=== PATIENT | male | born 1960 | race Caucasian/White ===

== ENCOUNTER → 2020-09-21 07:24 | Outpatient (CLI) | payer BC, SELFPAY ==
[2020-09-21 20:24] LABS: SARS-CoV-2 RNA PCR Negative
== END ==
PROVIDERS: PCP Family Medicine; Visit Provider Internal Medicine Gastroenterology
DX: Z01.812 Encounter for preprocedural laboratory examination (principal); Z20.822 Contact with and (suspected) exposure to COVID-19
CPT/HCPCS: C9803; U0003; U0005

== ENCOUNTER 2020-09-22 00:18 | Day surgery (SDC) | payer BC, SELFPAY ==
[2020-09-08 14:46] VITALS: BMI 27.0
--- NOTE | 2020-09-21 07:19 | SUR.PREOP ---
0718 Spoke with patient. He missed his Covid test appointment on Monday. Pt is going this morning. We discussed him prepping for his procedure today and us not having his test back till early tomorrow morning. I told him I would check his results at 5 am tomorrow and call him if his test was positive. He voiced understanding that if the test came back positive that we would cancel his procedure and he would have done the prep for nothing. He was ok with this and wants to proceed with the procedure and with getting Covid tested this morning.
[2020-09-22 06:26] VITALS: BP 133/69; PULSE 54; RESP 18; TEMP 36.3; O2SAT 100; BMI 28.9
[2020-09-22] MEDS: LACTATED RINGERS 1,000 ML 150 ML IV CONT (06:35)
--- NOTE | 2020-09-22 06:50 | PM.HPGS ---
History of Present Illness History of Present Illness Consent: Risks, benefits, and alternatives have been discussed and questions answered. Patient agrees to proceed with procedure. Chief complaint: Neoplasm Screeing, Hx of Colon Polyps, Fami hx Col Narrative: Kade Cleary is a 59 year old male For colon cancer screening. There is a family history of colon cancer Review of Systems Review of Systems: All systems reviewed & are unremarkable except as noted in HPI and below PMFSH Past Medical History Medical History Gilbert syndrome Hepatitis C Family History Family History Grandparent Family history of cardiovascular disease Mother Carcinoma of colon Social History Social History Smoking packs per day: 1 Smoking cigarettes per day: 20.0 Years smoked: 30 Smoking pack-years: 30.00 Smoking status: Former smoker Tobacco type: cigarettes Alcohol intake: never Substance use: never Living arrangements: with family Spiritual care concerns: No Meds Home Medications and Allergies Home Medications Medication Instructions Recorded Confirmed Type No Home Medications 09/22/20 09/22/20 History Allergies Allergy/AdvReac Type Severity Reaction Status Date / Time No Known Allergies Allergy Verified 09/22/20 06:20 Vital Signs Vital Signs - 24 hr 09/22/20 06:26 Temperature 36.3 C L Pulse Rate 54 L Respiratory Rate 18 Blood Pressure 133/69 Pulse Oximetry 100 Exam Resp: Auscultation: clear to auscultation bilaterally Cardio: Rate: regular rate Rhythm: regular rhythm GI: GI Palp: Yes Soft to palpation and No Tenderness to palpation present (GI) Assessment and Plan Assessment and plan (1) Colon cancer screening: Code(s): Z12.11 - Encounter for screening for malignant neoplasm of colon Status: Acute Assessment and Plan: Colonoscopy with possible biopsy or polypectomy or cautery or injection of substances.
--- NOTE | 2020-09-22 07:00 | WPDANESEPPF ---
Anes - Initial Pre Proc Eval Procedure: Operation Date: 09/22/20 07:30 Proposed Procedures p Screening Colonoscopy - Lincoln Ang MD Date/Time: 09/22/20 07:00 Surgeon: Lincoln Ang MD Pre Op Diagnosis: Neoplasm Screeing, Hx of Colon Polyps, Fami hx Col Patient Data Age: 59 Gender: M Height: 5 ft 5 in Weight: 78.9 kg Last Vital Signs Temp 97.3 F L 09/22/20 06:26 Pulse 54 L 09/22/20 06:26 Resp 18 09/22/20 06:26 BP 133/69 09/22/20 06:26 Pulse Ox 100 09/22/20 06:26 Allergies Allergy/AdvReac Type Severity Reaction Status Date / Time No Known Allergies Allergy Verified 09/22/20 06:20 Home Medications Medication Instructions Recorded Confirmed Type No Home Medications 09/22/20 09/22/20 History Patient hx anesthesia problems: none Family hx anesthesia problems: none PMFSH Past Medical History Medical History Gilbert syndrome Hepatitis C Family History Family History Grandparent Family history of cardiovascular disease Mother Carcinoma of colon Social History Social History Smoking packs per day: 1 Smoking cigarettes per day: 20.0 Years smoked: 30 Smoking pack-years: 30.00 Smoking status: Former smoker Tobacco type: cigarettes Alcohol intake: never Substance use: never Living arrangements: with family Spiritual care concerns: No Anes - Eval Final PreProcedure Day of Procedure 09/22/20 07:00 Patient weight: normal Heart: regular rate and rhythm Lungs: clear to auscultation Airway: Mallampati scale class II Neurological: alert and oriented Last oral intake: >/= 8 hours ASA classification: III Emergent: no Anesthetic plan: proceed Anesthesia type and monitoring: general GIVS and standard monitoring Informed Consent: The patient's anesthetic plan and its attendant risks and benefits were discussed with the patient/family/POA. Questions were solicited and answers provided to the satisfaction of the patient/family/POA.
[2020-09-22 07:48] VITALS: BP 105/62; PULSE 60; RESP 22; O2SAT 98
[2020-09-22 07:58] VITALS: BP 102/61; PULSE 48; RESP 16; O2SAT 99
[2020-09-22 08:08] VITALS: BP 109/55; PULSE 68; RESP 18; O2SAT 100
== END 2020-09-22 08:24 | disposition home or self-care (01) ==
PROVIDERS: PCP Family Medicine; Visit Provider Internal Medicine Gastroenterology
PROC: 0DJD8ZZ Inspection of Lower Intestinal Tract, Via Natural or Artificial Opening Endoscopic (ICD-10-PCS; CPT 45378; principal; 2020-09-22 07:30)
DX: Z12.11 Encounter for screening for malignant neoplasm of colon (principal); D12.3 Benign neoplasm of transverse colon; K57.30 Diverticulosis of large intestine without perforation or abscess without bleeding; Z80.0 Family history of malignant neoplasm of digestive organs; E80.4 Gilbert syndrome; B19.20 Unspecified viral hepatitis C without hepatic coma; Z87.891 Personal history of nicotine dependence
CPT/HCPCS: 45380; 88305; J2704; J7120

== ENCOUNTER 2024-08-19 15:06 | Outpatient (CLI) | payer OTHER, SELFPAY ==
--- NOTE | ~2024-08-19 | XR_ITS ---
EXAM: XR wrist LT min 3V DATE: 08/19/2024 15:23 HISTORY: S63.512A - Sprain of carpal joint of left wrist, initial ... . COMPARISON: None available. FINDINGS: Normal mineralization. No acute fracture or dislocation. Ossific fragmentation in the scap holunate ligament, may represent degenerative change or old fracture fragments. No lytic or blastic l esion. Severe radiocarpal narrowing. Scapholunate widening. Increased scapholunate angle of 77 degree s. Normal capitolunate angle. Triscaphe, first CMC joint, and lunate and capitate narrowing. No erosi on or periosteal change. Soft tissues within normal limits. IMPRESSION: Radiographic findings of scapholunate advanced collapse. Reviewed, dictated and finalized at location K. FISHER
--- OUTSIDE RECORDS SUMMARY | 2024-08-19 17:52 | XMS_ITS | Referral Summary ---
Author Organization [facility] Address [address] [place] [address] Care Team Providers Care Dust Sampler Name Role Phone Yonatan Gonzalez MD Primary Care Provider [phone]- [phone] Source Comments [facility],non-owned Affiliates and Associated Physician Practices is amultiple site organization consisting of ambulatory clinics and hospital sitesin [place], [place], [place] and [place]. This disclosure is being madepursuant to the Care Everywhere program and may not contain all information available regarding this patient. Last updated 18.[facility] [employer] Allergies No known active allergies Medications Be aware that medications may not be up to date on this document. Always verify current medications with the patient. No known medications Active Problems Problem Noted Date Diagnosed Date NEGATIVE PAST MEDICAL HISTORY - SEE PROBLEM LIST Social History Tobacco Use Types Packs/Day Years Used Date Smoking Tobacco: Former Sex and Gender Information Value Date Recorded Sex Assigned at Not on file Gender Identity Not on file Sexual Orientation Not on file Last Filed Vital Signs Vital Sign Reading Time Taken Comments Blood Pressure 128/74 04/18/2016 5:55 PM CDT Pulse 76 04/18/2016 5:55 PM CDT Temperature 36.9 C (98.5 F) 04/18/2016 5:55 PM CDT Respiratory Rate 16 04/18/2016 5:55 PM CDT Oxygen Saturation 100% 08/05/2013 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 Concentration - - Weight 81.6 kg (180 lb) 04/18/2016 5:55 PM CDT Height 175.3 cm (5' 9 ) 05/02/2014 10:43 AM CDT Body Mass Index 26.58 05/02/2014 10:43 AM CDT Plan of Treatment Not on file Procedures Procedure Name Priority Date/Time Associated Diagnosis Comments HEPATITIS C AB W/RFLX TO HCV RNA QN PCR Routine 04/25/2014 12:53 PM CDT from Last 3 Months or Most Recently Relevant to Health Maintenance Results * (ABNORMAL) HEPATITIS C AB W/RFLX TO HCV RNA QN PCR (04/25/2014 12:53 PM CDT) Hepatitis C Antibody REACTIVE(A ) NON-REACT [facility] ([facility]) Signal/Cutoff 32.30(H) <1.00 [facility] ([facility]) Comment: Test Performed at: [facility] [address] [place] [address] MONSTER MORA DO,MPH 04/25/2014 12:5 3 PM CDT 04/25/2014 12:54 PM CDT Thomas Morrell MD LAB - CHEMISTRY FATUMA LOGAN [facility] ([facility]) from Last 3 Months or Most Recently Relevant to Health Maintenance Care Teams Dust Sampler Relationship Specialty Start Date End Date Yonatan Gonzalez MD [address] [place] [phone] PCP - General 10/08/20
--- OUTSIDE RECORDS SUMMARY | 2024-08-19 17:52 | XMS_ITS | Patient Health Summary ---
Author Organization [facility] Address [address] [place] [address] Care Team Providers Care Cause Analyst Name Role Phone Yonatan Gonzalez MD Primary Care Provider [phone]- [phone] Note from [facility],non-owned Affiliates and Associated Physician Practices is amultiple site organization consisting of ambulatory clinics and hospital sitesin [place], [place], [place] and [place]. This disclosure is being madepursuant to the Care Everywhere program and may not contain all information available regarding this patient. 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 Concentration - - Weight 81.6 kg (180 lb) 04/18/2016 5:55 PM CDT Height 175.3 cm (5' 9 ) 05/02/2014 10:43 AM CDT Body Mass Index 26.58 05/02/2014 10:43 AM CDT Procedures * HEPATITIS C RNA QUANT (NONGRAPH) RFLX GENOTYPE(Performed 04/25/2014) * HEPATITIS C AB W/RFLX TO HCV RNA QN PCR(Performed 04/25/2014) * COMPREHENSIVE METABOLIC PANEL(Performed 04/25/2014) * CBC W AUTO DIFFERENTIAL(Performed 04/25/2014) * PATHOLOGY TISSUE(Performed 08/05/2013) * HEPATITIS C REAL-TIME PCR QUANTASURE(Performed 04/05/2013) * COMPREHENSIVE METABOLIC PANEL(Performed 04/05/2013) * CBC W AUTO DIFFERENTIAL(Performed 04/05/2013) * HEPATITIS C REAL-TIME PCR QUANTASURE(Performed 10/24/2012) * COMPREHENSIVE METABOLIC PANEL(Performed 10/24/2012) * CBC W AUTO DIFFERENTIAL(Performed 10/24/2012) * CBC W AUTO DIFFERENTIAL(Performed 09/03/2012) * COMPREHENSIVE METABOLIC PANEL(Performed 09/03/2012) * COMPREHENSIVE METABOLIC PANEL(Performed 07/28/2012) * CBC W AUTO DIFFERENTIAL(Performed 07/28/2012) * COMPREHENSIVE METABOLIC PANEL(Performed 06/29/2012) * CBC W AUTO DIFFERENTIAL(Performed 06/29/2012) * PATHOLOGY REPORTS - HPF HISTORICAL(Performed 03/09/2012) * PATHOLOGY REPORTS - HPF HISTORICAL(Performed 03/09/2012) * PATHOLOGY REPORTS - HPF HISTORICAL(Performed 03/09/2012) * PATHOLOGY REPORTS - HPF HISTORICAL(Performed 08/30/2008) * COMPREHENSIVE METABOLIC PANEL(Performed 07/03/1998) * CBC W AUTO DIFFERENTIAL(Performed 07/03/1998) * PT-INR [facility](Performed 07/03/1998) Results * (ABNORMAL) HEPATITIS C AB W/RFLX TO HCV RNA QN PCR (04/25/2014 12:53 PM CDT) Hepatitis C Antibody REACTIVE(A ) NON-REACT [facility]ICA [facility] ([facility]) Signal/Cutoff 32.30(H) <1.00 [facility] ([facility]) Comment: Test Performed at: [facility] [address] [facility], [place] [address] MONSTER MORA DO,MPH 04/25/2014 12:5 3 PM CDT 04/25/2014 12:54 PM CDT Thomas Morrell MD LAB - CHEMISTRY FATUMA Waggoner Organization Address City/State/ZIP Co de Phone Number [facility] * HEPATITIS C RNA QUANT (NONGRAPH) RFLX GENOTYPE (04/25/2014 12:53 PM CDT) Hepatitis C Virus RNA PCR Quantitative <15 NOT DETECTED <15 IU/mL [facility] ([facility]) Hepatitis C Virus RNA Log IU/mL <1.18 NOT DETECTED <1.18 Log IU/mL [facility] ([facility]) Comment: Please note: There are several scenarios that may cause this combination of results. 1)Patient is not currently actively infected with HCV either because the patient has a resolved HCV infection or the patient has a false positive Ab test and was never infected with HCV. 2)A few patients with circulating anti-HCV antibodies that do not have detectable HCV RNA, may not have completely resolved the infection. These infrequently encountered patients could be carriers of the virus and should be managed according to the current Treatment Guidelines (J Hepatol, 3543-3830, ). Please correlate these findings with the patient's clinical history and any other diagnostic findings, including any evidence of liver dysfunction. See Note [facility] ([facility]) Comment: Please note: The guidelines for the use of new anti-HCV therapies (boceprevir and telaprevir) recommend using a test method that detects plasma viral nucleic acid levels as low as 10 IU/mL. This assay has a Limit of Detection of 10-13 IU/mL and conforms to the recommendation. Quantitation of plasma HCV nucleic acid levels below 15 IU/mL (the Lower Limit of Quantitation for this test) may not be linear, and in this circumstance are reported as <15 IU/mL HCV RNA Detected . This test was performed using the LAURA(R)AmpliPrep/ LAURA(R)TaqMan(R)HCV Test, v2.0. The performance characteristics of this assay have been determined by [employer]. Performance characteristics refer to the analytical performance of the test. For more information on this test, go to: http://education.[employer]/faq/QXZ61f2 Test Performed at: [facility] [place] [address] [place] [address] MONSTER MORA DO,MPH 04/25/2014 12:5 3 PM CDT 04/25/2014 12:54 PM CDT Thomas Morrell MD LAB - CHEMISTRY FATUMA LOGAN [facility] ([facility]) * (ABNORMAL) CBC W AUTO DIFFERENTIAL (04/25/2014 12:53 PM CDT) Only the most recent of7 resultswithin the time period is included. WBC 10.9(H) 3.8 - 10.8 Thousand/u L [facility] ([facility]) RBC 5.18 4.20 - 5.80 Million/uL [facility] ([facility]) Hemoglobin 15.8 13.2 - 17.1 g/dL [facility] ([facility]) Hematocrit 46.7 38.5 - 50.0 % [facility] ([facility]) MCV 90.0 80.0 - 100.0 fL [facility] ([facility]) MCH 30.5 27.0 - 33.0 pg [facility] ([facility]) MCHC 33.9 32.0 - 36.0 g/dL [facility] ([facility]) RDW-CV 13.5 11.0 - 15.0 % [facility] ([facility]) Platelet 214 140 - 400 Thousand/u L [facility] ([facility]) Neutrophils Absolute 7,477 1,500 - 7,800 cells/uL [facility] ([facility]) Lymphocyte Absolute Manual 2,725 850 - 3,900 cells/uL [facility] ([facility]) Monocytes Absolute 523 200 - 950 cells/uL [facility] ([facility]) Eosinophils Absolute 131 15 - 500 cells/uL [facility] ([facility]) Basophil Absolute Manual 44 0 - 200 cells/uL [facility] ([facility]) Neutrophils % 68.6 % [facility] ([facility]) Lymphocytes % 25.0 % [facility] ([facility]) Monocytes % 4.8 % [facility] ([facility]) Eosinophils % 1.2 % [facility] ([facility]) Basophil % 0.4 % [facility] ([facility]) Comment: Test Performed at: [facility] [address] [place] [address] MONSTER MORA DO,MPH 04/25/2014 12:5 3 PM CDT 04/25/2014 12:54 PM CDT Thomas Morrell MD LAB - HEMATOLOGY ORD ERABLES [facility] ([facility]) * COMPREHENSIVE METABOLIC PANEL (04/25/2014 12:53 PM CDT) Only the most recent of7 resultswithin the time period is included. Glucose 84 65 - 99 mg/dL [facility] ([facility]) Comment: Fasting reference interval BUN 22 7 - 25 mg/dL [facility] ([facility]) Creatinine 1.05 0.70 - 1.33 mg/dL [facility] ([facility]) Comment: For patients >49 years of age, the reference limit for Creatinine is approximately 13% higher for people identified as -Guyanese. eGFR non- 80 > OR = 60 mL/min/1 .73m2 [facility] ([facility]) eGFR 92 > OR = 60 mL/min/1 .73m2 [facility] ([facility]) BUN/Creatinine Ratio NOT APPLICABLE 6 - 22 (calc) [facility] ([facility]) Sodium 142 135 - 146 mmol/L [facility] ([facility]) Potassium 4.4 3.5 - 5.3 mmol/L [facility] ([facility]) Chloride 110 98 - 110 mmol/L [facility] ([facility]) CO2 25 19 - 30 mmol/L [facility] ([facility]) Calcium 9.8 8.6 - 10.3 mg/dL [facility] ([facility]) Protein Total 6.9 6.1 - 8.1 g/dL [facility] ([facility]) Albumin 4.6 3.6 - 5.1 g/dL [facility] ([facility]) Globulin 2.3 1.9 - 3.7 g/dL (calc) [facility] ([facility]) Albumin/Globulin Ratio 2.0 1.0 - 2.5 (calc) [facility] ([facility]) Bilirubin Total 0.8 0.2 - 1.2 mg/dL [facility] ([facility]) Alkaline Phosphatase 50 40 - 115 U/L [facility] ([facility]) AST 15 10 - 35 U/L [facility] ([facility]) ALT 10 9 - 46 U/L [facility] ([facility]) Comment: Test Performed at: [facility] [address] [place] [address] MONSTER MORA DO,MPH 04/25/2014 12:5 3 PM CDT 04/25/2014 12:54 PM CDT Thomas Morrell MD LAB - CHEMISTRY FATUMA LOGAN [facility] ([facility]) * PATHOLOGY TISSUE (08/05/2013 11:00 AM PROFESSIONAL FIGHTER) AP Surg () [facility] Comment: CLINICAL HISTORY: This is a 52-year-old male patient here with a history of chronic hepatitis C and colonic adenoma. FINAL DIAGNOSIS: COLON, SIGMOID, POLYPS, BIOPSY - HYPERPLASTIC POLYPS GROSS DESCRIPTION: The specimen is received in formalin, labeled Evin, Kade D and sigmoid colon . It consists of six 0.1 to 0.3 cm irregular portions of acharya-pink, finely-granular soft tissue which are submitted in toto in cassette A1. EW for MP/edk MICROSCOPIC DESCRIPTION: Microscopic examination supports the diagnosis. DRILLING RIG OPERATOR/MP/BC The performance characteristics of all immunohistochemical and indirect immunofluorescence stains (if any) cited in this report were determined by the [facility] of [facility] in compliance with CLIA '88 regulations. Some of these tests rely on the use of analyte-specific reagents and are subject to specific labeling requirements by the FDA. Such tests were developed by the [facility] of [facility] and have not been cleared or approved by the FDA. The FDA has determined that such clearance or approval is not necessary. These tests are used for clinical purposes and should not be regarded as investigational or for research. This case has been personally reviewed and interpreted by the attending (teaching) pathologist. Final Diagnosis performed by Bertha Verduzco MD. Electronically signed 08/06/2013 08/05/2013 11:0 0 AM PROFESSIONAL FIGHTER 08/05/2013 2:25 PM PROFESSIONAL FIGHTER Thomas Morrell MD LAB - PATHOLOGY/CYTO LOGY ORDERABLES [address] [phone] * HEPATITIS C REAL-TIME PCR QUANTASURE (04/05/2013 12:00 PM CDT) Only the most recent of2 resultswithin the time period is included. Hepatitis C Virus RNA PCR Quantitative <15 NOT DETECTED <15 IU/mL [facility] ([facility]) Hepatitis C Virus RNA Log IU/mL <1.18 NOT DETECTED <1.18 Log IU/mL [facility] ([facility]) See Note [facility] ([facility]) Comment: Please note: The guidelines for the use of new anti-HCV therapies (boceprevir and telaprevir) recommend using a test method that detects plasma viral nucleic acid levels as low as 10 IU/mL. This assay has a Limit of Detection of 10-13 IU/mL and conforms to the recommendation. Quantitation of plasma HCV nucleic acid levels below 15 IU/mL (the Lower Limit of Quantitation for this test) may not be linear, and in this circumstance are reported as <15 IU/mL HCV RNA Detected . This test was performed using the LAURA(R)AmpliPrep/ LAURA(R)TaqMan(R)HCV Test, v2.0. The performance characteristics of this assay have been determined by [employer]. Performance characteristics refer to the analytical performance of the test. For more information on this test, go to: http://education.[employer]/faq/VVF64v8 Test Performed at: [facility] [place] [address] [place] [address] MONSTER MORA DO,MPH 04/05/2013 12:0 0 PM CDT 04/05/2013 12:07 PM CDT Thomas Morrell MD LAB - SEROLOGY ORDER [facility]) * PATHOLOGY REPORTS - HPF HISTORICAL (03/09/2012 3:49 PM CDT) Only the most recent of4 resultswithin the time period is included. 03/09/2012 3:49 PM CDT Narrative [facility] - 03/09/2012 3:49 PM CDT Historical Provider LAB - PATHOLOGY/C YTOLOGY ORDERABLES [facility] [address] [place] [address], [place] * PT-INR [facility] (07/03/1998 12:00 AM PROFESSIONAL FIGHTER) PT 10.7 [facility] ([facility]) INR 1.0 [facility] ([facility]) Plasma specimen (specimen) 07/03/1998 Narrative [facility] ([facility]) - 07/03/1998 12:00 AM PROFESSIONAL FIGHTER This order was created through External Result Entry Thomas Morrell MD LAB - COAGULATION OR DERABLES [facility] ([facility]) Care Teams Cause Analyst Relationship Specialty Start Date End Date Yonatan Gonzalez MD [address] [place] [phone] PCP - General 10/08/20
--- OUTSIDE RECORDS SUMMARY | 2024-08-19 17:52 | XMS_ITS | Clinical Summary ---
Author Organization [facility] Address [address] [place] [address] Care Team Providers Care Assistant Laboratory Director Name Role Phone Yonatan Gonzalez MD Primary Care Provider +1- [phone] Source Comments [facility],non-owned Affiliates and Associated Physician Practices is amultiple site organization consisting of ambulatory clinics and hospital sitesin [place], [place], [place] and [place]. This disclosure is being madepursuant to the Care Everywhere program and may not contain all information available regarding this patient. Last updated 18.[facility] [employer]. 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 Oxygen Concentration - - Weight 81.6 kg (180 lb) 04/18/2016 5:55 PM CDT Height 175.3 cm (5' 9 ) 05/02/2014 10:43 AM CDT Body Mass Index 26.58 05/02/2014 10:43 AM CDT Plan of Treatment Health Maintenance Due Date Last Done Comments COLOGUARD (AGES 45-75) - COLON CA SCREENING 1958 COLON MONITORING 1958 COLONOSCOPY - COLON CA SCREENING 1958 CT COLONOGRAPHY - COLON CA SCREENING 1958 Colorectal Cancer Screening 1958 FIT - COLON CA SCREENING 1958 FLEX SIG - COLON CA SCREENING 1958 LIPID TESTING 1958 HIV SCREENING 1973 DTAP/TDAP/TD VACCINES (1 - Tdap) 1977 PNEUMOCOCCAL VACCINE 50+ (1 of 1 - PCV) 2008 ZOSTER VACCINE (1 of 2) 2008 HEPATITIS B VACCINE (1 of 3 - Risk 3-dose series) 2018 AAA SCREENING 12/17/2023 COVID-19 VACCINE (1 - season) 2024 INFLUENZA VACCINE (#1) 2024 DEPRESSION SCREENING 07/03/2024 Respiratory Syncytial Virus (RSV) Vaccine Pt: or over 60 yrs (1 - 1-dose 75+ series) 2033 HEPATITIS C SCREENING Completed 05/02/2014 , 04/25/2014, 04/19/2013, Additional history exists HIB VACCINE Aged Out No longer eligi ble based on patient's age to complete this topic HPV VACCINE Aged Out No longer eligi ble based on patient's age to complete this topic MENINGOCOCCAL (Group B) VACCINE Aged Out No longer eligible based on patient's age to complete this topic MENINGOCOCCAL VACCINE Aged Out No pebbles chloe eligible based on patient's age to complete this topic Procedures Procedure Name Priority Date/Time Associated Diagnosis Comments HEPATITIS C AB W/RFLX TO HCV RNA QN PCR Routine 04/25/2014 12:53 PM CDT from Last 3 Months or Most Recently Relevant to Health Maintenance Results * (ABNORMAL) HEPATITIS C AB W/RFLX TO HCV RNA QN PCR (04/25/2014 12:53 PM CDT) Hepatitis C Antibody REACTIVE(A ) NON-REACT [facility] ([facility]) Signal/Cutoff 32.30(H) <1.00 [facility] ([facility]) Comment: Test Performed at: [facility] [address] [address] MONSTER MORA DO,MPH 04/25/2014 12:5 3 PM CDT 04/25/2014 12:54 PM CDT Thomas Morrell MD LAB - CHEMISTRY FATUMA LOGAN [facility] ([facility]) from Last 3 Months or Most Recently Relevant to Health Maintenance Care Teams Assistant Laboratory Director Relationship Specialty Start Date End Date Yonatan Gonzalez MD [address] [place] [phone] PCP - General 10/08/20
== END 2024-08-19 15:07 | disposition home or self-care (01) ==
PROVIDERS: PCP Family Medicine; Visit Provider Plastic Surgery
DX: S63.512A Sprain of carpal joint of left wrist, initial encounter (principal); X58.XXXA Exposure to other specified factors, initial encounter
CPT/HCPCS: 73110

== ENCOUNTER 2024-09-05 07:56 | Outpatient (CLI) | payer OTHER, SELFPAY ==
--- NOTE | ~2024-09-05 | MR_ITS ---
EXAMINATION: MR wrist LT wo con DATE: 09/05/2024 08:34 INDICATION: TECHNIQUE: Magnetic resonance imaging (MRI) of the affected wrist was performed without intravenous c ontrast. Sequences performed include axial PD-weighted FSE and PD-weighted FS FSE, coronal PD-weighte d FS FSE and T1-weighted SE, and sagittal PD-weighted FS FSE and PD-weighted FSE. COMPARISON: None FINDINGS: Intrinsic ligaments: There is widening of the scapholunate interval with chronic complete tear of the scapholunate ligamen t with some heterotopic ossification forming along the frayed ligament tissue. The lunotriquetral lig ament is normal. Triangular fibrocartilage complex (TFCC): There is a partial tear at the ulnar styloid attachment of the triangular fibrocartilage complex and the dorsal radioulnar ligament as well as partial thickness tear along the ulnar side of the central fibrocartilaginous disc. The ulnar collateral ligament, ulnotriquetral ligament and meniscal homologu e are normal. The extensor carpi ulnaris tendon sheath is normal. Extensor wrist: Extensor tendons of the wrist are normal. No tenosynovitis. Flexor wrist: The flexor tendons of the wrist are normal. There appears to be a focal decreased cross-sectional harmeet meter of the median nerve at the level of the carpal tunnel relative to the cross-sectional area of t he nerve more proximally in the carpus and there is convex volar bulging of the flexor aponeurosis wh ich could be seen with carpal tunnel syndrome. Guyon's canal: Guyon's canal including the ulnar nerve and artery are normal. Bones/other: Dorsal rotatory subluxation of the lunate with increased scapholunate and lunocapitate angles consist ent with dorsal intercalated segment instability (DISI) resulting from the scalene ligament tear. 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 There is also moderate osteoarthritis at the lunocapitate articulation of the midcarpal j oint. There is a typical distribution of osteoarthritis would be consistent with secondary scapholuna te advanced collapse (SLAC) wrist. Additional moderate osteoarthritis at the triscaphe joint and mini mal to mild osteoarthritis at many of the remaining joints at the wrist and carpus. Irregular contour along the distal pole of the scaphoid due to collimation marginal osteophytes. Osseous excrescence a long the dorsal/radial margin of the scaphoid which could be related to old healed fracture or hetero topic ossification related to chronic avulsion or soft tissue injury. No acute/subacute fracture, ero sions, avascular necrosis or abnormal marrow replacing process. IMPRESSION: 1. 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 2. Tear of the triangular fibrocartilage complex involving the dorsal radioulnar ligament, the ulnar styloid attachment and along the ulnar side of the central fibrocartilaginous disc. 3. Volar bowing of the flexor retinaculum with focal decreased cross-sectional area of the ulnar nerv e at the carpal tunnel which can be seen in the setting of carpal tunnel syndrome. Reviewed, dictated and finalized at location L. CUTTER IMPRESSION: 1. Chronic scapholunate ligament tear with secondary dorsal intercalated segmen t instability (DISI) and scapholunate advanced collapse (SLAC) wrist as evidenc ed by superior osteoarthritis at the radioscaphoid articulation and moderate os teoarthritis at the lunocapitate articulation of the midcarpal joint. 2. Tear of the triangular fibrocartilage complex involving the dorsal radioulna r ligament, the ulnar styloid attachment and along the ulnar side of the centra l fibrocartilaginous disc. 3. Volar bowing of the flexor retinaculum with focal decreased cross-sectional area of the ulnar nerve at the carpal tunnel which can be seen in the setting o f carpal tunnel syndrome.
--- NOTE | ~2024-09-05 | CT_ITS ---
EXAMINATION:CT lung screening DATE: 09/05/2024 08:44 INDICATION: Personal history of nicotine dependence. Smoker who quit 5 years ago with 30 pack year hi story. TECHNIQUE: Computed tomography (CT) of the chest was performed without intravenous contrast. Automate d exposure control and iterative reconstruction technique were employed. The dose-length product (DLP ) was 75.76 mGy-cm. COMPARISON: None. FINDINGS: There is mild emphysema. There is mild atelectasis bilaterally. Calcified right lung nodule s and calcified right hilar lymph nodes are consistent with old granulomatous disease. There is a 4 m m nodule left lower lobe. No pleural effusion. The heart size is normal. There are coronary artery ca lcifications. No pericardial effusion. Calcifications in the liver consistent with old granulomatous disease. There is mild thoracic spondylosis. IMPRESSION: 1. Lung-RADS category 2: Benign appearance or behavior. Continue annual screening with noncontrast lo w-dose chest CT in 12 months. Reviewed, dictated and finalized at location A. SERVICE ATTENDANT IMPRESSION: 1. Lung-RADS category 2: Benign appearance or behavior. Continue annual screeni ng with noncontrast low-dose chest CT in 12 months.
--- OUTSIDE RECORDS SUMMARY | 2024-09-05 08:03 | XMS_ITS | Patient Health Summary ---
Author Organization [facility] Address [address] [place] [address] Care Team Providers Care Homoeopath Name Role Phone Yonatan Gonzalez MD Primary Care Provider [phone]- [phone] Note from [facility],non-owned Affiliates and Associated Physician Practices is amultiple site organization consisting of ambulatory clinics and hospital sitesin [place], [place], [place] and [place]. This disclosure is being madepursuant to the Care Everywhere program and may not contain all information available regarding this patient. Last updated 18.[facility] [employer] Allergies No known active allergies Medications Be [...] CDT Oxygen Saturation 100% 08/05/2013 12:06 PM TOBACCO WAREHOUSE AGENT Inhaled Oxygen Concentration - - Weight 81.6 [...] C Antibody REACTIVE(A ) NON-REACT [facility]ICA [facility] ([facility]) Signal/Cutoff 32.30(H) <1.00 [facility] ([facility]) Comment: Test Performed at: [facility] [place] [address] [place] [address] MONSTER MORA DO,MPH 04/25/2014 12:5 3 PM CDT 04/25/2014 12:54 PM CDT Thomas Morrell MD LAB - CHEMISTRY FATUMA Waggoner Organization Address City/State/ZIP Co de Phone Number [facility] * HEPATITIS C RNA QUANT (NONGRAPH) RFLX GENOTYPE (04/25/2014 12:53 PM CDT) Hepatitis C Virus RNA PCR Quantitative <15 NOT DETECTED <15 IU/mL [facility] ([facility]) Hepatitis C Virus RNA Log IU/mL <1.18 NOT DETECTED <1.18 Log IU/mL [facility] ([facility]) Comment: Please note: There are several scenarios [...] to the current Treatment Guidelines (J Hepatol, 9933-2714, ). Please correlate these findings with the patient's clinical history and any other diagnostic findings, including any evidence of liver dysfunction. See Note [facility] ([facility]) Comment: Please note: The guidelines for the [...] of this assay have been determined by [employer]. Performance characteristics refer to the analytical performance of the test. For more information on this test, go to: http://education.Hyper Urban Level User [place].Datacratic/faq/BMG26n6 Test Performed at: [facility] [place] [address] [place] [address] MONSTER MORA DO,MPH 04/25/2014 12:5 3 PM CDT 04/25/2014 12:54 PM CDT Thomas Morrell MD LAB - CHEMISTRY FATUMA [facility]AN [facility] ([facility]) * (ABNORMAL) CBC W AUTO DIFFERENTIAL (04/25/2014 12:53 PM CDT) Only the most recent of7 resultswithin the time period is included. WBC 10.9(H) 3.8 - 10.8 Thousand/u L [facility] ([facility]) RBC 5.18 4.20 - 5.80 Million/uL [facility] ([facility]) Hemoglobin 15.8 13.2 - 17.1 g/dL [facility] ([facility]) Hematocrit 46.7 38.5 - 50.0 % [facility] ([facility]) MCV 90.0 80.0 - 100.0 fL [facility] ([facility]) MCH 30.5 27.0 - 33.0 pg [facility] ([facility]) MCHC 33.9 32.0 - 36.0 g/dL [facility] ([facility]) RDW-CV 13.5 11.0 - 15.0 % [facility] ([facility]) Platelet 214 140 - 400 Thousand/u L [facility] ([facility]) Neutrophils Absolute 7,477 1,500 - 7,800 cells/uL [facility] ([facility]) Lymphocyte Absolute Manual 2,725 850 - 3,900 cells/uL [facility] ([facility]) Monocytes Absolute 523 200 - 950 cells/uL [facility] ([facility]) Eosinophils Absolute 131 15 - 500 cells/uL [facility] ([facility]) Basophil Absolute Manual 44 0 - 200 cells/uL [facility] ([facility]) Neutrophils % 68.6 % [facility] ([facility]) Lymphocytes % 25.0 % [facility]) Monocytes % 4.8 % [facility]) Eosinophils % 1.2 % [facility]) Basophil % 0.4 % [facility] ([facility]) Comment: Test Performed at: [facility] [place] [address] [place] [address] MONSTER MORA DO,MPH 04/25/2014 12:5 3 PM CDT 04/25/2014 12:54 PM CDT Thomas Morrell MD LAB - HEMATOLOGY ORD ERABLES [facility] ([facility]) * COMPREHENSIVE METABOLIC PANEL (04/25/2014 12:53 PM CDT) Only the most recent of7 resultswithin the time period is included. Glucose 84 65 - 99 mg/dL [facility] ([facility]) Comment: Fasting reference interval BUN 22 7 - 25 mg/dL [facility] ([facility]) Creatinine 1.05 0.70 - 1.33 mg/dL [facility] ([facility]) Comment: For patients >49 years of age, the reference limit for Creatinine is approximately 13% higher for people identified as -Surinamese. eGFR non- 80 > OR = 60 mL/min/1 .73m2 [facility] ([facility]) eGFR 92 > OR = 60 mL/min/1 .73m2 [facility] ([facility]) BUN/Creatinine Ratio NOT APPLICABLE 6 - 22 (calc) [facility] ([facility]) Sodium 142 135 - 146 mmol/L [facility] ([facility]) Potassium 4.4 3.5 - 5.3 mmol/L [facility] ([facility]) Chloride 110 98 - 110 mmol/L [facility] ([facility]) CO2 25 19 - 30 mmol/L [facility] ([facility]) Calcium 9.8 8.6 - 10.3 mg/dL [facility] ([facility]) Protein Total 6.9 6.1 - 8.1 g/dL [facility] ([facility]) Albumin 4.6 3.6 - 5.1 g/dL [facility] ([facility]) Globulin 2.3 1.9 - 3.7 g/dL (calc) [facility] ([facility]) Albumin/Globulin Ratio 2.0 1.0 - 2.5 (calc) [facility] ([facility]) Bilirubin Total 0.8 0.2 - 1.2 mg/dL [facility] ([facility]) Alkaline Phosphatase 50 40 - 115 U/L [facility] ([facility]) AST 15 10 - 35 U/L [facility] ([facility]) ALT 10 9 - 46 U/L [facility] ([facility]) Comment: Test Performed at: [facility] [address] [place] [address] MONSTER MORA DO,MPH 04/25/2014 12:5 3 PM CDT 04/25/2014 12:54 PM CDT Thomas Morrell MD LAB - CHEMISTRY FATUMA LOGAN [facility] ([facility]) * PATHOLOGY TISSUE (08/05/2013 11:00 AM TOBACCO WAREHOUSE AGENT) AP Surg () [facility] Comment: CLINICAL HISTORY: This is [...] MICROSCOPIC DESCRIPTION: Microscopic examination supports the diagnosis. SHOE REPAIRER APPRENTICE/MP/BC The performance characteristics of all immunohistochemical and indirect immunofluorescence stains (if any) cited in this report were determined by the [facility] in compliance with CLIA '88 regulations. Some of these tests rely on the use of analyte-specific reagents and are subject to specific labeling requirements by the FDA. Such tests were developed by the [facility] and have not been cleared or approved [...] Electronically signed 08/06/2013 08/05/2013 11:0 0 AM TOBACCO WAREHOUSE AGENT 08/05/2013 2:25 PM TOBACCO WAREHOUSE AGENT Thomas Morrell MD LAB - PATHOLOGY/CYTO LOGY ORDERABLES [address] [phone] * HEPATITIS C REAL-TIME PCR QUANTASURE (04/05/2013 12:00 PM CDT) Only the most recent of2 resultswithin the time period is included. Hepatitis C Virus RNA PCR Quantitative <15 NOT DETECTED <15 IU/mL [facility] ([facility]) Hepatitis C Virus RNA Log IU/mL <1.18 NOT DETECTED <1.18 Log IU/mL [facility] ([facility]) See Note JACINDA ([facility]) Comment: Please note: The guidelines for the [...] of this assay have been determined by [employer]. Performance characteristics refer to the analytical performance of the test. For more information on this test, go to: http://education.Shunra Software/faq/KOT59f1 Test Performed at: [facility] [place] [address] [place] [address] MONSTER MORA DO,MPH 04/05/2013 12:0 0 PM CDT 04/05/2013 12:07 PM CDT Thomas Morrell MD LAB - SEROLOGY ORDER [facility]) * PATHOLOGY REPORTS - HPF HISTORICAL (03/09/2012 3:49 PM CDT) Only the most recent of4 resultswithin the time period is included. 03/09/2012 3:49 PM CDT Narrative [facility] - 03/09/2012 3:49 PM CDT Historical Provider LAB - PATHOLOGY/C YTOLOGY ORDERABLES [facility] [address] [place] [address], [facility] * PT-INR [facility] (07/03/1998 12:00 AM TOBACCO WAREHOUSE AGENT) PT 10.7 [facility] ([facility]) INR 1.0 [facility] ([facility]) Plasma specimen (specimen) 07/03/1998 Narrative [facility] ([facility]) - 07/03/1998 12:00 AM TOBACCO WAREHOUSE AGENT This order was created through External Result Entry Thomas Morrell MD LAB - COAGULATION OR DERABLES [facility] ([facility]) Care Teams Homoeopath Relationship Specialty Start Date End Date Yonatan Gonzalez MD [address] [place] [phone] PCP - General 10/08/20
--- OUTSIDE RECORDS SUMMARY | 2024-09-05 08:03 | XMS_ITS | Clinical Summary ---
Author Organization [facility] Address [address] [place] [address] Care Team Providers Care Card Fixer Name Role Phone Yonatan Gonzalez MD Primary Care Provider [phone]- [phone] Source Comments [facility],non-owned Affiliates and Associated Physician Practices is amultiple site organization consisting of ambulatory clinics and hospital sitesin [place], [place], [place] and [place]. This disclosure is being madepursuant to the Care Everywhere program and may not contain all information available regarding this patient. Last updated 18.[facility] Allergies No known active allergies Medications Be [...] CDT Oxygen Saturation 100% 08/05/2013 12:06 PM INSIDE WIRER Inhaled Oxygen Concentration - - Weight 81.6 [...] 2008 ZOSTER VACCINE (1 of 2) 2008 AAA SCREENING 12/17/2023 COVID-19 VACCINE (1 - season) 2024 INFLUENZA VACCINE (#1) 2024 DEPRESSION SCREENING 07/03/2024 Respiratory Syncytial Virus (RSV) Vaccine Pt: or over 60 yrs (1 - 1-dose 75+ series) 2033 HEPATITIS C SCREENING Completed 05/02/2014 , 04/25/2014, 04/19/2013, Additional history exists HEPATITIS B VACCINE Aged Out No longe r eligible based on patient's age to complete this topic HIB VACCINE Aged Out No longer eligi [...] C Antibody REACTIVE(A ) NON-REACT [facility] ([facility]) Signal/Cutoff 32.30(H) <1.00 [facility] ([facility]) Comment: Test Performed at: [facility] [address] [address] MONSTER MORA DO,MPH 04/25/2014 12:5 3 PM CDT 04/25/2014 12:54 PM CDT Thomas Morrell MD LAB - CHEMISTRY FATUMA LOGAN [facility] ([facility]) from Last 3 Months or Most Recently Relevant to Health Maintenance Care Teams Card Fixer Relationship Specialty Start Date End Date Yonatan Gonzalez MD [address] [place] [phone] PCP - General 10/08/20
--- OUTSIDE RECORDS SUMMARY | 2024-09-05 08:03 | XMS_ITS | Clinical Summary ---
Author Organization [facility] Care Team Providers Care Fire Control Officer Name Role Phone Unavailable Primary Care Provider Unavailabl e Social History Tobacco Use Types Packs/Day Years Used Date Smoking Tobacco: Never Assessed Sex and Gender Information Value Date Recorded Sex Assigned at Not on file Legal Sex Male 9:07 AM ANALYTICAL STATISTICIAN Gender Identity Not on file Sexual Orientation Not on file Plan of Treatment Health Maintenance Due Date Last Done Comments Hepatitis C Virus (HCV) Screening 1960 TdaP Immunization 1960 Colonoscopy 12/17/2003 Colorectal Cancer Screening 12/17/2003 Cologuard 2008 Immunochemical Fecal Occult Blood 2008 Pneumococcal Immunization (5 0+ years) (1 of 1 - PCV) 2008 Zoster Immunization (1 of 2) 2008 PSA Discussion 2013 Influenza Immunization (#1) 2024 08/06/2020 SARS-COV-2 Immunization ( - 2023- season) 2024 Respiratory Syncytial Virus (RSV) Immunization (Adult) (1 - 1-dose 75+ series) 2033 DTaP/Tdap/Td Immunization Discontinued 11/06/2000 Hepatitis B Immunization Aged Out No longer eligible based on patient's age to complete this topic Meningococcal Immunization (ACWY) Aged Out No longer eligible based on patient's age to complete this topic Rotavirus Immunization Aged Out No lo nger eligible based on patient's age to complete this topic
--- OUTSIDE RECORDS SUMMARY | 2024-09-05 08:03 | XMS_ITS | Referral Summary ---
Author Organization [facility] Address [address] [place] [address] Care Team Providers Care Draftsperson Name Role Phone Yonatan Gonzalez MD Primary Care Provider [phone]- [phone] Source Comments [facility],non-owned Affiliates and Associated Physician Practices is amultiple site organization consisting of ambulatory clinics and hospital sitesin [place], [place] and [place]. This disclosure is being madepursuant to the Care Everywhere program and may not contain all information available regarding this patient. Last updated 18.[facility] [place] Allergies No known active allergies Medications Be [...] CDT Oxygen Saturation 100% 08/05/2013 12:06 PM SALESPERSON YARD GOODS Inhaled Oxygen Concentration - - Weight 81.6 [...] C Antibody REACTIVE(A ) NON-REACT [facility] ([facility]) Signal/Cutoff 32.30(H) <1.00 [facility] ([facility]) Comment: Test Performed at: [facility] [address] [place] [address] MONSTER MORA DO,MPH 04/25/2014 12:5 3 PM CDT 04/25/2014 12:54 PM CDT Thomas Morrell MD LAB - CHEMISTRY FATUMA LOGAN [facility] ([facility]) from Last 3 Months or Most Recently Relevant to Health Maintenance Care Teams Draftsperson Relationship Specialty Start Date End Date Yonatan Gonzalez MD [address] [place] [phone] PCP - General 10/08/20
== END 2024-09-05 07:57 | disposition home or self-care (01) ==
PROVIDERS: PCP Family Medicine; Visit Provider Plastic Surgery
DX: Z12.2 Encounter for screening for malignant neoplasm of respiratory organs (principal); S63.512A Sprain of carpal joint of left wrist, initial encounter; M24.232 Disorder of ligament, left wrist; Z87.891 Personal history of nicotine dependence; X58.XXXA Exposure to other specified factors, initial encounter
CPT/HCPCS: 71271; 73221